=== PATIENT | male | born 1975 | race Caucasian/White ===

== ENCOUNTER 2023-03-31 07:05 | Outpatient (CLI) | payer BC ==
[2023-03-31] MEDS ORDERED: Iopamidol 370 76% 100 ML VIAL ONE (10:13)
== END 2023-03-31 07:06 | disposition home or self-care (01) ==
LOC: CT 07:05
PROVIDERS: ATTEND Internal Medicine Cardiovascular Disease
DX: I73.9 Peripheral vascular disease, unspecified (principal)
CPT/HCPCS: Q9967

== ENCOUNTER 2023-04-03 14:44 | Outpatient (CLI) | payer BC | END 2023-04-03 14:45 | disposition home or self-care (01) | LOC: CT 14:44 | PROVIDERS: ATTEND Internal Medicine Cardiovascular Disease | DX: I73.9 Peripheral vascular disease, unspecified (principal); I65.22 Occlusion and stenosis of left carotid artery; I77.89 Other specified disorders of arteries and arterioles | CPT/HCPCS: 70498 ==